=== PATIENT | male | born 1975 | race Caucasian/White ===

== ENCOUNTER 2017-11-29 12:46 | Emergency (ER) | payer SELFPAY ==
[2017-11-29] MEDS ORDERED: ONDANSETRON 4 MG TAB.RAPDIS PO ONE (13:57)
[2017-11-29] MEDS ORDERED: LIDOCAINE 4%/TETRACAINE 0.5%/EPI 0.18% 5 ML TOPICAL SOLN TOP ONE (13:57)
[2017-11-29] MEDS ORDERED: SULFAMETHOXAZOLE/TRIMETHOPRIM 800-160 MG TABLET PO ONE (13:57)
--- NOTE | 2017-11-29 13:57 | ER Document Report ---
HPI - HPI Patient complains to provider of: Right axilla abscess Onset: Other - Several days Onset/Duration: Gradual Quality of pain: Throbbing Pain Level: 5 Context: 42-year-old male complaining of an abscess for almost a week in his right axilla it is getting larger and more painful. He had similar abscess left axilla but he poked them on his own and they resolved. He had an ex-girlfriend who had abscess and so is wondering if he contracted something from her. No history of MRSA. No fever or chills. Associated Symptoms: None Exacerbated by: Movement Relieved by: Denies Similar symptoms previously: No Recently seen / treated by doctor: No - ROS ROS below otherwise negative: Yes Systems Reviewed and Negative: Yes All other systems reviewed and negative - CONSTITUTIONAL Constitutional: DENIES: Fever, Chills Past Medical History - General Information source: Patient - Social History Smoking Status: Current Every Day Smoker Chew tobacco use (# tins/day): Yes - dip Frequency of alcohol use: Occasional Drug Abuse: Marijuana Lives with: Family Family History: Reviewed & Not Pertinent Patient has suicidal ideation: No Patient has homicidal ideation: No - Medical History Medical History: Negative Renal/ Medical History: Denies: Hx Peritoneal Dialysis Past Surgical History: Reports: Hx Tonsillectomy Vertical Provider Document - CONSTITUTIONAL Agree With Documented VS: Yes Exam Limitations: No Limitations General Appearance: No Apparent Distress - INFECTION CONTROL TRAVEL OUTSIDE OF THE [place] IN LAST 30 DAYS: No - NECK Neck: Supple - RESPIRATORY O2 Sat by Pulse Oximetry: 96 - NEURO Level of Consciousness: Awake, Alert Motor/Sensory: No Motor Deficit, No Sensory Deficit - DERM Integumentary: Abscess - Red indurated abscess right axilla Course - Vital Signs Vital signs: Temp Pulse Resp BP Pulse Ox 98.1 F 82 16 153/91 H 96 11/29/17 12:52 11/29/17 12:52 11/29/17 12:52 11/29/17 12:52 11/29/17 12:52 Procedures - Incision and Drainage Right Time completed: 15:00 Type: Simple Anesthetic type: 1% Lidocaine mL's of anesthetic: 3 Blade size: 11 I&D procedure: Betadine prep applied, Sterile dressing applied - corner of 4 x 4 into the 1 cm incision Incision Method: Incision made by scalpel - explored gently, only blood, no pus , must be adenopathy Amount/type of drainage: blood no pus Discharge - Discharge Clinical Impression: right axilla abscess I and D, right axilla adenopathy Condition: Good Disposition: HOME, SELF-CARE Instructions: Abscess ([facility]), Bactroban Ointment ([facility]), Post Incision and Drainage, Trimethoprim-Sulfa ([facility]), Warm Packs ([facility]) Additional Instructions: warm compress septra twice a day change dressing in 2 days shower with antibacterial soap, washclothe, let water run into the wound dry dressing return to er if worse Prescriptions: Mupirocin [Bactroban 2% Ointment 22 gm] 1 applic TP TID #22 gm Sulfamethoxazole/Trimethoprim [Sulfamethoxazole-Tmp Ds Tablet] 1 each PO BID # 14 tablet Forms: Return to Work
[2017-11-29] MEDS ORDERED: ACETAMINOPHEN 325 MG TABLET PO ONE (14:00)
[2017-11-29] MEDS ORDERED: IBUPROFEN 800 MG TABLET PO ONE (14:00)
[2017-11-29 15:12] VITALS: BP 159/100
== END 2017-11-29 15:15 | disposition home or self-care (01) ==
LOC: ER 12:46
PROC: 0H9BXZZ Drainage of Right Upper Arm Skin, External Approach (ICD-10-PCS; principal; 2017-11-29)
DX: L02.411 Cutaneous abscess of right axilla (principal); F17.210 Nicotine dependence, cigarettes, uncomplicated
CPT/HCPCS: 99283; 10060; S0119; J3490